=== PATIENT | female | born 1955 | race Caucasian/White ===

== ENCOUNTER 2017-09-25 11:36 | Emergency (ER) | payer BC ==
[~2017-09-25] VITALS: Ht 165.1 cm; Wt 99.8 kg
[~2017-09-25 11:36] MED LIST: DOCU-144; POLY17PO4 PO
[2017-09-25 11:44] VITALS: BP_SYST 125
--- NOTE | 2017-09-25 12:00 | NUR ---
Patient to ER bed 07 to gown for evaluation. Side rails up.
--- NOTE | 2017-09-25 12:11 | NUR ---
ER at bedside examining patient.
[2017-09-25] MEDS ORDERED: ALBUTEROL SULFATE 0.083% 2.5 MG/3 ML VIAL.NEB IH ONE ×2 (12:15→14:45)
[2017-09-25] MEDS ORDERED: IPRATROPIUM BROM 0.5 MG/2.5 ML VIAL.NEB (ATROVENT) IH ONE ×2 (12:15→14:45)
[2017-09-25] MEDS ORDERED: methylPREDNISolone SOD SUCC/PF 62.5 MG/ML VIAL IVP ONE (12:15)
--- NOTE | 2017-09-25 12:15 | NUR ---
Pt complains of cough, congestion, fever and body aches for the past week. Pt states went to [facility] yesterday and was given ATB for PNA. Pt woke up this morning with SOB, pt is able to communicate in full sentences. Pt is getting a breathing TX at this time. Pt denies n/v or diarrhea. No other injuries/complaints per pt or noted.
--- NOTE | 2017-09-25 12:28 | NUR ---
Medication was given, pt tolerated it well. No noted adverse reaction, will continue to monitor.
[2017-09-25 12:40] LABS: BASOPHILS # (AUTO) 0.1 K/uL (0.0-0.2); BASOPHILS % (AUTO) 0.4 % (0.0-2.0); EOSINOPHILS # (AUTO) 0.4 K/uL (0.0-0.4); EOSINOPHILS % (AUTO) 3.2 % (0.0-4.0); HEMATOCRIT 37.9 % (36-48); HEMOGLOBIN 12.3 g/dL (12.0-16.0); LYMPHOCYTES % (AUTO) 22.9 % (20.5-51.5); MEAN CORPUSCULAR HEMOGLOBIN 27 pg (27-31); MEAN CORPUSCULAR HGB CONC 32 % (32-36); MEAN CORPUSCULAR VOLUME 85 fL (79.0-98.0); MONOCYTES # (AUTO) 0.7 K/uL (0.0-1.0); MONOCYTES % (AUTO) 5.4 % (1.7-9.3); NEUTROPHILS # (AUTO) 9.1 K/uL (1.8-7.7); NEUTROPHILS % (AUTO) 68.1 % (40.0-70.0); PLATELET COUNT (AUTO) 423 K/uL (130-430); RED BLOOD CELL COUNT(AUTO) 4.47 MIL/uL (4.2-6.2); RED CELL DISTRIBUTION WIDTH 12.9 % (9.0-15.0); WHITE BLOOD COUNT (AUTO) 13.3 K/uL (4.8-10.8)
[2017-09-25 12:48] LABS: CALCIUM 10.1 mg/dL (8.4-11.0); CREATININE 0.9 mg/dL (0.55-1.30)
[2017-09-25 12:51] LABS: ALBUMIN 3.3 g/dL (3.4-4.8); TOTAL BILIRUBIN 0.1 mg/dL (0.0-1.0)
[2017-09-25 12:56] LABS: PROTHROMBIN TIME 10.2 SECS (9.5-12.5)
--- NOTE | 2017-09-25 14:22 | NUR ---
Pt resting at this time on stable condition, VSS.
[2017-09-25] MEDS ORDERED: ALBUTEROL SULFATE 0.083% 2.5 MG/3 ML VIAL.NEB INH ONE (14:30)
[2017-09-25] MEDS ORDERED: IPRATROPIUM BROM 0.5 MG/2.5 ML VIAL.NEB (ATROVENT) INH ONE (14:30)
[2017-09-25 14:56] VITALS: BP_SYST 144
--- NOTE | 2017-09-25 14:56 | NUR ---
Patient given written and verbal discharge instructions and verbalizes understanding. ER MD discussed with patient the results and treatment provided. Patient in stable condition. ID arm band removed. Rx of Albuterol inh and Prednisone given. Patient educated on pain management and to follow up with PMD. Pain Scale 0/10. Opportunity for questions provided and answered.
== END 2017-09-25 14:56 | disposition home or self-care (01) ==
LOC: SED 11:36
DX: J20.9 Acute bronchitis, unspecified (principal); J45.909 Unspecified asthma, uncomplicated; I10 Essential (primary) hypertension; Z88.0 Allergy status to penicillin; Z91.041 Radiographic dye allergy status; Z90.49 Acquired absence of other specified parts of digestive tract; Z98.51 Tubal ligation status
CPT/HCPCS: 36415; 71045; 80053; 82550; 83880; 85025; 85610; 85730; 86710; 93005; 94640; 96374; 99285; J2930

== ENCOUNTER 2019-03-04 09:54 | Emergency (ER) | payer BC ==
[~2019-03-04] VITALS: Ht 172.7 cm; Wt 102.1 kg
[2019-03-04 09:56] VITALS: BP_SYST 158
--- NOTE | 2019-03-04 10:00 | NUR ---
Pt was brought to bed 8 by [facility] ambulance. Report given to Trung.
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
--- NOTE | 2019-03-04 10:05 | NUR ---
Dr. Trevizo at bedside to assess pt.
--- NOTE | 2019-03-04 10:25 | NUR ---
Patient ambulated with assistance to restroom.
[2019-03-04] MEDS ORDERED: KETOROLAC TROMETHAMINE 60 MG/2 ML VIAL IM ONE (10:45)
[2019-03-04] MEDS ORDERED: ONDANSETRON 4 MG ODT TAB PO ONE (11:45)
[2019-03-04] MEDS ORDERED: MORPHINE 4 MG/ML INJ. SYRINGE IM ONE (11:45)
[2019-03-04 13:05] VITALS: BP_SYST 139
--- NOTE | 2019-03-04 13:05 | NUR ---
Patient given written and verbal discharge instructions and verbalizes understanding. ER MD discussed with patient the results and treatment provided. Patient in stable condition. ID arm band removed. Rx of zofran 8mg, motrin 800mg, and Fajardo 5-325mg given. Patient educated on pain management and to follow up with PMD. Pain Scale .Opportunity for questions provided and answered. Medication side effect fact sheet provided.
== END 2019-03-04 13:05 | disposition home or self-care (01) ==
LOC: SED 09:54
DX: S20.219A Contusion of unspecified front wall of thorax, initial encounter (principal); S90.32XA Contusion of left foot, initial encounter; S60.221A Contusion of right hand, initial encounter; I10 Essential (primary) hypertension; Z90.49 Acquired absence of other specified parts of digestive tract; Z88.0 Allergy status to penicillin; Z88.6 Allergy status to analgesic agent; Z91.041 Radiographic dye allergy status; Z79.899 Other long term (current) drug therapy; V43.52XA Car driver injured in collision with other type car in traffic accident, initial encounter; Y93.89 Activity, other specified; Y92.410 Unspecified street and highway as the place of occurrence of the external cause; Y99.8 Other external cause status
CPT/HCPCS: 71045; 73140; 73630; 96372; 99283; J1885; J2270; Q0162

== ENCOUNTER 2019-08-26 20:17 | Emergency (ER) | payer OTHER, MEDICARE ==
[~2019-08-26] VITALS: Ht 165.1 cm; Wt 108.9 kg
[2019-08-26 20:43] VITALS: BP_SYST 156
[2019-08-26] MEDS ORDERED: HYDR12.55 (20:47)
[2019-08-26] MEDS ORDERED: METH2.5T PO (20:48)
--- NOTE | 2019-08-26 21:11 | NUR ---
Pt ambulatory to be 4 for evaluation
--- NOTE | 2019-08-26 21:15 | NUR ---
ER at bedside examining patient.
--- NOTE | 2019-08-26 21:18 | NUR ---
Pt brought in by self. Pt awake, alert, orientedx4. Pt states that she has all over body aches. Pt denies chest pain, nausea, vomiting, diarrhea, shortness of breath. Pt denies any t\other medical complaint at this time. Pt vss, resting in ED bed, no acute distress noted.
[2019-08-26] MEDS ORDERED: traMADol HCL HCL 50 MG TABLET (ULTRAM) PO ONE (21:45)
[2019-08-26 22:00] VITALS: BP_SYST 148
--- NOTE | 2019-08-26 22:00 | NUR ---
Patient given written and verbal discharge instructions and verbalizes understanding. ER MD discussed with patient the results and treatment provided. Patient in stable condition. ID arm band removed. NO IV Rx of Tramadol and motrin given. Patient educated on pain management and to follow up with PMD. Pain Scale 0/10. Opportunity for questions provided and answered. Medication side effect fact sheet provided.
== END 2019-08-26 22:00 | disposition home or self-care (01) ==
LOC: SED 20:17
DX: J02.9 Acute pharyngitis, unspecified (principal); I10 Essential (primary) hypertension; M54.5 Low back pain; Z79.890 Hormone replacement therapy; Z88.0 Allergy status to penicillin; Z79.899 Other long term (current) drug therapy; Z88.6 Allergy status to analgesic agent; Z88.8 Allergy status to other drugs, medicaments and biological substances
CPT/HCPCS: 99283